=== PATIENT | female | born 1945 | race Caucasian/White ===

== ENCOUNTER → 2017-08-03 | Outpatient (CLI) | payer OTHER ==
[~2017-08-03] MED LIST: ASCO500T16 PO; ASPI-113 PO; BUSP-8 PO; CLB/200 PO; CLTP PO; ESCI1TAB10 PO; EZET10TA38 PO; HYG25 PO; LOSA1TAB PO; MECL1TAB42 PO; MULT-506 PO; OXYC-292 PO; POTA20TA16 PO
[2017-08-03 18:02] LABS: ALBUMIN 3.9 gm/dl (3.4-5.0); ALT/SGPT 32 U/L (12-78); AST/SGOT 17 U/L (15-37); BLOOD UREA NITROGEN 15 mg/dl (7-18); CALCIUM 9.3 mg/dl (8.5-10.1); CARBON DIOXIDE 31 mmol/L (21-32); GLUCOSE 140 mg/dl (70-99); SODIUM 137 mmol/L (136-145)
[2017-08-03 18:04] LABS: ALKALINE PHOSPHATASE 71 U/L (45-117); TOTAL PROTEIN 7.1 gm/dl (6.4-8.2)
== END | disposition home or self-care (01) ==
LOC: C.LABPBG 11:50
PROVIDERS: ATTEND Family Medicine
DX: E11.9 Type 2 diabetes mellitus without complications (principal); I10 Essential (primary) hypertension

== ENCOUNTER → 2017-08-04 | Outpatient (CLI) | payer OTHER ==
[~2017-08-04] MED LIST changes: +GADAVIST IV PRN
--- NOTE | 2017-08-04 11:54 | DIAGNOSTIC IMAGING REPORT ---
Brain MRI WITH AND WITHOUT CONTRAST HISTORY: Tremors. TECHNIQUE: Multiplanar multisequence MRI of the brain was performed both before and after the intravenous administration of contrast. COMPARISON STUDY: None. FINDINGS: There are no areas of restricted diffusion to suggest acute infarction. The midline structures are intact. The paranasal sinuses are clear. The mastoid air cells are clear. The ventricles and sulci are within normal limits for age. There is no mass, hematoma, midline shift. The major vascular flow-voids at the skull base are well maintained. Postcontrast sequences show no areas of abnormal enhancement. There is a 1 cm T1 and T2 hyperintense lesion within the calvarium posteriorly. This favors a hemangioma. There is a single punctate focus of T2 hyperintensity seen within the periventricular white matter of the left frontal lobe. This is of doubtful clinical significance and may be due to a focus of microvascular ischemic change. IMPRESSION: No acute intracranial abnormality. Electronically signed by: Aldo Neal M.D. 08/04/2017 11:53 AM Dictated Date/Time: 08/04/2017 11:47 AM
== END | disposition home or self-care (01) ==
LOC: C.MRI 10:53
PROVIDERS: ATTEND Family Medicine
DX: R25.1 Tremor, unspecified (principal)

== ENCOUNTER 2018-12-23 05:01 | Inpatient (IN) ==
--- NOTE | 2018-12-02 15:52 | PAT Medication Instructions ---
Medication Instructions Date of Service December 02, 2018 Home Medications atorvastatin 40 mg PO HS buspirone 15 mg PO BID calcium carbonate-vitamin D3 [Calcium 600 + D(3)] 2 cap PO QAM escitalopram oxalate 20 mg PO QAM fenofibrate micronized 134 mg PO QAM glipizide 2.5 mg PO QPM losartan 25 mg PO QAM metformin 500 mg PO QPM naproxen sodium [Aleve] 440 mg PO Q8H PRN ASK your surgeon for instructions naproxen sodium [Aleve] 440 mg PO Q8H PRN STOP taking 24 hours before surgery fenofibrate micronized 134 mg PO QAM DO NOT take the morning of surgery calcium carbonate-vitamin D3 [Calcium 600 + D(3)] 2 cap PO QAM losartan 25 mg PO QAM Take morning of surgery With a small sip of water, OTHERWISE NOTHING TO EAT OR DRINK AFTER MIDNIGHT: buspirone 15 mg PO BID escitalopram oxalate 20 mg PO QAM Take evening before surgery atorvastatin 40 mg PO HS buspirone 15 mg PO BID glipizide 2.5 mg PO QPM metformin 500 mg PO QPM Other Notes If you have any questions please call us at [phone] or [phone] or [phone] or [phone]
--- NOTE | 2018-12-07 08:50 | History & Physical Report ---
Date of Service December 07, 2018 Date of Surgery: 12-23-18 Assessment & Plan (1) Painful total knee replacement, left: Risks and benefits of procedure discussed in detail today, patient would like to proceed with a left total knee revision at [facility] as scheduled. will obtain medical clearance prior to surgery as well as obtain PATs at [facility]. Will place on ASA 81mg po bid x 1 month post op, f/u 2 weeks post op for routine post-operative care and x-ray, sooner if having any problems. will make arrangements for OPPT at the time of discharge. At this point in time, has failed conservative measures and would like to proceed with surgical intervention. is scheduled for stress test December 16. History of Present Illness Chief Complaint: painful left total knee replacement Primary Care Provider: Liss Garrison DO Ms Rand is a 73 year old female who complains of left knee pain, presents for pre-op evaluation prior to a left total knee revision by Dr Bryant at [facility]. She complains of pain and instability on the left side. she had previously underwent left medial compartment and patellofemoral arthroplasty with ORIF tibial plateau by Dr Nichols 08/23/10. She states that the symptoms have been chronic non- traumatic and are intermittent. currently the patient states that the symptoms are moderate-severe and describes her pain as throbbing. she rates her current pain as 5/10. The symptoms are aggravated by daily activities and first steps while awake. Princess states that the symptoms are relieved by no specific activity . In addition to left knee pain the patient is also experiencing decreased mobility, difficulty bending, limping, instability, joint pain, loss of motion and weakness. She has had PT and sometimes uses a cane and walker. 08-23-10 Dr. Nichols performed Left knee medial compartment arthroplasty, Patellofemoral arthroplasty with ORIF tibial plateau. after discussing futher care, patient will undergo revision left TKA. xrays reviewed with dr bryant, showing a subsided tibial component. Allergies Allergy/AdvReac Type Severity Reaction Status Date / Time clonazepam AdvReac Unknown severe Verified 12/01/18 12:09 dizziness;severe ringing in ears Home Medications Home Medications Medication Instructions Recorded Confirmed Type atorvastatin 40 mg PO HS 12/01/18 12/01/18 History buspirone 15 mg PO BID 12/01/18 12/01/18 History calcium carbonate-vitamin D3 2 cap PO QAM 12/01/18 12/01/18 History [Calcium 600 + D(3)] escitalopram oxalate 20 mg PO QAM 12/01/18 12/01/18 History fenofibrate micronized 134 mg PO QAM 12/01/18 12/01/18 History glipizide 2.5 mg PO QPM 12/01/18 12/01/18 History losartan 25 mg PO QAM 12/01/18 12/01/18 History metformin 500 mg PO QPM 12/01/18 12/01/18 History naproxen sodium [Aleve] 440 mg PO Q8H PRN 12/01/18 12/01/18 History Past Med/Surg History Medical History Anxiety Depression Diabetes mellitus, type 2 Hyperlipidemia Hypertension Surgical History History of appendectomy History of bilateral tubal ligation History of cholecystectomy History of colonoscopy History of total knee replacement LEFT/RIGHT Nausea and vomiting after administration of anesthetic agent Family History Mother Family history of diabetes mellitus Social History Preferred Language: Chinese Communication Ability: Effective Vp Digital Marketing Social Media And Crm Required: No Beliefs That Will Affect Care: None Current Living Situation: Spouse and Family Other Information That Helps Us Care for You: No Feels Safe at Home: Yes Safety Concerns: Feels Safe At This Time Smoking Status: Never smoker Do You Dip or Chew Tobacco: No Second Hand Exposure: Yes (SPOUSE SMOKES) Hx Alcohol Use: No Hx Substance Use: No Review of Systems Review of Systems: All systems reviewed & are unremarkable except as noted in HPI & below Constitutional: no fever, no chills and no sweats Respiratory: no cough and no dyspnea Cardiovascular: no chest pain, no dyspnea and no orthopnea Gastrointestinal: no abdominal pain, no nausea and no vomiting Musculoskeletal: as per Subjective / HPI Physical Exam Physical Exam: Ht: 4ft 11in Wt: 68.5kg BP: 132/82 Pulse: 62 Constitutional: WD/WN, vitals as above no acute distress Respiratory: normal respiratory effort, lungs clear to auscultation no respiratory distress, no labored breathing and does not use accessory muscles Cardiovascular: RRR, no murmur, no edema Gastrointestinal (Abdomen): normal bowel sounds, soft, nontender, no hepatosplenomegaly Musculoskeletal: Left Knee Exam- she ambulates with a limp, overall neutral alignment, there is no skin atrophy warmth or ecchymosis noted, well healed s urgical incision. mild effusion, maximum tenderness medial tibial plateau. negative patellar apprehension , no crepitation with motion, valgus stress Negative, Varus stress Negative, no extensor lag, pain with active range of motion, also passive painful ROM, Range of motion 0/3/115. No pain with active/passive ROM of ankle. Lower Extremity Strength normal. Lower Extremity Neuro-vascular is normal Results & Data Diagnostic Findings left knee x-ray showing s/p medial compartment and patellofemoral joint replacement, with screw in place medial tibial plateau. medial component has subsided, mild varus alignment. no acute bony pathology, no loose bodies.
--- NOTE | 2018-12-07 12:34 | Anesthesiology Consultation ---
Date of Service 12/07/18 Assessment & Plan (1) Encounter for pre-operative examination: - PCP: 12/03/18: stress test ordered for evaluation of EKG (per PCP note, EKG noted moderate T-wave abnormality with consideration of anterior ischemia). "At this time, patient will be cleared preoperatively pending stress echo." Exercise stress ECHO done - negative for ischemia at 88% MPHR. - Check BSG AM DOS Chart Review Chart Review: Acceptable Risk for Surgery and Patient seen in Pre Admission Test ing Teaching & Discussion Pre-Anesthesia Teaching/Discussion Notes: Instructed NPO after midnight before surgery,except medications with 15 cc of water. Medication instructions provided according to the PAT guidelines. History Surgery Operation Date: 12/23/18 07:00 Proposed Procedures p Left Total Knee Revision Arthroplasty Deuce to Sheba Ac, Height/Weight Height: 4 ft 11.5 in Weight: 68.5 kg Allergies Allergy/AdvReac Type Severity Reaction Status Date / Time clonazepam AdvReac Unknown severe Verified 12/01/18 12:09 dizziness;severe ringing in ears Medications Home Medications Medication Instructions Recorded Confirmed Last Taken atorvastatin 40 mg PO HS 12/01/18 12/01/18 Unknown buspirone 15 mg PO BID 12/01/18 12/01/18 Unknown calcium carbonate-vitamin D3 2 cap PO QAM 12/01/18 12/01/18 Unknown [Calcium 600 + D(3)] escitalopram oxalate 20 mg PO QAM 12/01/18 12/01/18 Unknown fenofibrate micronized 134 mg PO QAM 12/01/18 12/01/18 Unknown glipizide 2.5 mg PO QPM 12/01/18 12/01/18 Unknown losartan 25 mg PO QAM 12/01/18 12/01/18 Unknown metformin 500 mg PO QPM 12/01/18 12/01/18 Unknown naproxen sodium [Aleve] 440 mg PO Q8H PRN 12/01/18 12/01/18 Unknown Past Medical History Medical History Anxiety Depression Diabetes mellitus, type 2 NIDDM Hyperlipidemia Hypertension Exercise / Class Metabolic Activity II 4-5 Yardwork/Stairs/Walk up hill Past Family History Family History Mother Family history of diabetes mellitus Past Surgical History Surgical History History of appendectomy History of bilateral tubal ligation History of cholecystectomy History of colonoscopy History of total knee replacement LEFT/RIGHT Status post trigger finger release B/L Past Anesthesia History No Hx of Anesthesia Complications (EXCEPT PONV) and No Family Hx of Anesthesia Complications History of PONV No Hx of Motion Sickness and History of PONV Social History Smoking Status: Never smoker Do You Dip or Chew Tobacco: No Hx Alcohol Use: No Hx Substance Use: No substance use type: does not use Review of Systems Patient denies chest pain, shortness of breath, cough, wheezing, palpitations. Physical Exam Vital Signs VITALS BP 144/77 P 71 TEMP 98.6 SP02 96%RA RESP 18 PHYSICAL Full neck and c-spine range of motion. Full TMJ range of motion. TMD 3 finger breaths Mallampati Score 2 Dentition: full upper dentures Lungs: clear throughout to auscultation Cardiac: regular rate and rhythm, I-II/ systolic murmur (LUSB>RUSB) Spine: normal Carotid arteries: negative bruit Extremities: no edema Testing Laboratory Results 12/07/18 13:10 12/07/18 13:10 12/07/18 12/07/18 12/07/18 13:10 13:10 Unknown PT 10.9 INR 1.1 APTT 25.6 Hemoglobin A1c 6.0 H Urine Color Yellow Urine Appearance Clear Urine pH 6.0 Ur Specific [place] 1.021 Urine Protein Negative Urine Glucose (UA) 3+ H Urine Ketones Negative Urine Nitrite Negative Ur Leukocyte Esterase Negative Glucose 228, hgba1c 6.0% (surgeon aware) 12/07/18 HGBA1C A-Ab- Electrocardiogram Date: 12/07/18 NSR at 72bpm. NS STA. Chest X-Ray Date: 12/07/18 Findings: + NAD Stress Test Date: 12/16/18 Type: exercise Negative exercise stress ECHO for ischemia at 88% MPHR. No chest pain. 88% MPHR. 7 METS. No RWMA. No significant valvular disease.
--- NOTE | 2018-12-07 13:34 | XRay Report ---
XR chest Pre-admission PA/Lat CLINICAL HISTORY: Preoperative chest COMPARISON STUDY: 02/04/2013 FINDINGS: The cardiac and mediastinal contours are normal. There is no evidence of focal pulmonary co nsolidation. There is no evidence of failure. No pleural effusions are visualized.[ IMPRESSION: No active disease in the chest. Electronically signed by: Boris Aguirre M.D. 12/07/2018 1:32 PM
[2018-12-07 14:08] LABS: Eosinophils # (auto) 0.01 K/uL (0-0.5); Eosinophils % (auto) 0.2 %; Hematocrit (blood only) 35.7 % (37-47); Hemoglobin 12.3 g/dL (12.0-16.0); Immature Granulocytes # (auto) 0.02 K/uL (0.00-0.02); Immature Granulocytes % (auto) 0.3 %; Lymphocytes # (auto) 1.36 K/uL (1.2-3.4); Lymphocytes % (auto) 21.2 %; Mean Corpuscular Hgb Conc 34.5 g/dL (32-36); Mean Corpuscular Volume 84.6 fL (80-100); Mean Platelet Volume 10.7 fL (7.4-10.4); Monocytes # (auto) 0.36 K/uL (0.11-0.59); Monocytes % (auto) 5.6 %; Neutrophils # (auto) 4.68 K/uL (1.4-6.5); Neutrophils % (auto) 72.7 %; Platelet Count 224 K/uL (130-400); RDW Coefficient of Variation 12.9 % (11.5-14.5); RDW Standard Deviation 39.5 fL (36.4-46.3); Red Blood Count 4.22 M/uL (4.2-5.4); White Blood Count 6.43 K/uL (4.8-10.8)
[2018-12-07 14:15] LABS: Estimated Average Glucose 126 mg/dl; INR 1.1 (0.9-1.1); Partial Thromboplastin Ratio 0.9; Partial Thromboplastin Time 25.6 Seconds (21.0-31.0); Prothrombin Time 10.9 Seconds (9.0-12.0)
[2018-12-07 14:20] LABS: Appearance Urine Clear (Clear); Bilirubin Urine Negative (Negative); Blood Urine Negative (Negative); Color Urine Yellow; Glucose Urine UA 3+ (Negative); Ketones Urine Negative (Negative); Leukocyte Esterase Urine Negative (Negative); Nitrite Urine Negative (Negative); Protein Urine Negative (Negative); Specific Gravity Urine 1.021 (1.000-1.030); Urobilinogen Urine Negative (Negative)
[2018-12-07 14:33] LABS: BUN Creatinine Ratio 13.4 (10-20); Creatinine Clr Calc Pharmacy 41.5 ml/min; Est GFR (African American) 61.2; Est GFR (Non-African American) 52.8; Potassium 3.7 mmol/L (3.5-5.1)
[2018-12-23] MEDS ORDERED: CeleBREX 200 MG CAP PO SCH (06:00)
[2018-12-23] MEDS ORDERED: LR 500ML BOLUS, THEN 15ML/HR IV SCH (06:00)
[2018-12-23] MEDS ORDERED: GABAPENTIN 300 MG PO SCH (06:00)
[2018-12-23] MEDS ORDERED: fentaNYL citrate 100 MCG/2 ML VIAL ONE ×2 (06:00→08:57)
[2018-12-23] MEDS ORDERED: METOCLOPRAMIDE HCL 10 MG TABLET PO SCH (06:00)
[2018-12-23] MEDS ORDERED: PROPOFOL IV EMULSION 10 MG/ML 20 ML VIAL IV ONE (06:00)
[2018-12-23] MEDS ORDERED: CEFAZOLIN 1000MG 1,000 MG/7.5 ML SYR IV SCH (06:00)
[2018-12-23] MEDS ORDERED: FAMOTIDINE 20 MG TAB PO SCH (06:00)
[2018-12-23] MEDS ORDERED: LIDOCAINE HCL 2% 2 ML VIAL/AMP(20MG/ML) INFIL ONE (06:00)
[2018-12-23] MEDS ORDERED: ACETAMINOPHEN 500 MG TAB PO SCH (06:00)
[2018-12-23] MEDS ORDERED: ROPIVACAINE 0.5% HCL/PF 150 MG, BUPIVACAINE 0.5% MPF 30 ML, EPINEPHrine 30MG/30ML (OR U... INFIL SCH (06:00)
[2018-12-23] MEDS ORDERED: MIDAZOLAM HCL 1 MG/ML 2ML VIAL ONE (06:01)
[2018-12-23] MEDS ORDERED: BUPIVACAINE 0.5 % 5 MG/1 ML PF 10ML VIAL ONE (06:07)
[2018-12-23] MEDS ORDERED: ROPIVACAINE 0.5% 5 MG/ML 30 ML VIAL ONE (06:08)
[2018-12-23] MEDS ORDERED: ORTHO JOINT ANESTHETIC ONE (06:34)
[2018-12-23] MEDS ORDERED: BACITRACIN INJ 50,000 UNIT VIAL ONE ×2 (06:34→06:35)
[2018-12-23] MEDS ORDERED: ATROPINE SULFATE 0.1 MG/ML 10ML SYR IV PRN (06:55)
[2018-12-23] MEDS ORDERED: KETOROLAC 30 MG/ML VIAL IV PRN (06:55)
[2018-12-23] MEDS ORDERED: ePHEDrine sulfate 50 MG/ML AMP IV PRN (06:55)
[2018-12-23] MEDS ORDERED: PHENYLEPHRINE 100MCG/ML 5ML SYR IV PRN (06:55)
[2018-12-23] MEDS ORDERED: HYDROmorphone INJ 1 MG/ML SYRINGE IV PRN (06:55)
[2018-12-23] MEDS ORDERED: ONDANSETRON INJ 2 MG/ML 2 ML VIAL IV PRN ×2 (06:55→13:07)
[2018-12-23] MEDS ORDERED: TRANEXAMIC ACID 1,000 MG in 0.9 % SODIUM CHLORIDE 100 ML IV SCH (07:00)
--- NOTE | 2018-12-23 07:29 | History & Physical Bridge Note ---
Date of Service December 23, 2018 History & Physical Bridge Note I have examined the patient, reviewed the History & Physical and in the interval since the performance of the History & Physical I have noted the following changes of clinical significance: no changes noted
[2018-12-23] MEDS ORDERED: ONDANSETRON INJ 2 MG/ML 2 ML VIAL ONE (08:15)
[2018-12-23] MEDS ORDERED: ROCURONIUM BROMIDE 10 MG/ML 5 ML VIAL ONE (08:15)
[2018-12-23] MEDS ORDERED: ePHEDrine sulfate 50 MG/ML SYR ONE (08:28)
[2018-12-23] MEDS ORDERED: HYDROmorphone INJ 2 MG/ML SYR/VIAL ONE (09:23)
[2018-12-23] MEDS ORDERED: GLYCOPYRROLATE 0.2 MG/ML VIAL ONE (09:38)
[2018-12-23] MEDS ORDERED: NEOSTIGMINE METHYLSULFATE 5 MG/5 ML SYR ONE (09:38)
--- NOTE | 2018-12-23 11:04 | Operative Report ---
Post Operative Report Pre & Post Diagnosis Operation Date: 12/23/18 07:00 Pre-Op Diagnosis: LEFT KNEE OSTEOARTHRITIS Post-Op Diagnosis: LEFT KNEE OSTEOARTHRITIS Procedure Operation Date: 12/23/18 07:00 Actual Procedures p Left Total Knee Revision Arthroplasty Deuce to Sheba(Left) utilizing legion revision total knee arthroplasty femur size 3 stem size 16 stem length 22 mm o ffset set at 3:00 with 5 mm medial and posterior just distal augments tibia size to 15 mm stem by 13 mm canal with a 160 length with a stem cell offset of 6 set at 8:00 and a 5 mm medial augment- Zeke Ac DO Surgeon DO Walter Leonard DO Photogrammetric Surveyor Edward HOLT Estimated Blood Loss 50 Findings Consistent with Post-Op Diagnosis Patient presents after having previously undergone a Deuce bicompartmental knee arthroplasty which is a loosening subsidence failed patient presents for a left removal deuce with revision to total knee arthroplasty patient has had a pre- operative work-up sed rate C-reactive protein within normal limits no effusion no evidence of any infectious signs were noted intraoperatively no synovitis loosening of the tibial component was noted with subsidence Specimens Bone and cartilage explant of Deuce Drains Medium bore Hemovac Anesthesia Type General Regional Complications none Disposition Accompanied Patient To Recovery: No Disposition: Recovery Room Indications Patient presents with a painful hemiarthroplasty knee replacement which is loosened aseptically and subsided for revision to total knee arthroplasty Description of Procedure After proper prepping draping the left lower extremity incision made in the anterior aspect of the knee in the region of the previous incision the incision was subsequently the medial parapatellar incision was subsequently expanded the patella was subluxed lateralward the distal femoral and proximal tibial implants were evaluated at the distal femoral limb implant was removed utilizing oscillating saw a series of orders chisels of the proximal tibia implant was loose was removed via a hemostat the wound was evaluated at medial lateral retinacular releases were performed the scar from medial lateral gutters was excised possible tibia having been exposed intramedullary reaming successively up to a size 13 was performed which gave excellent fill this with the proximal tibial osteotomy cut was made in the region of the previous medial implant there was bone loss and way 5 mm augment was necessary the proximal tibia was was cut with a 5 mm medial augment block in place medical hemostasis obtained to maintain distance of the distal femur was evaluated there was bone loss involving the anterior tibia from the previous implant and subsequently stemmed implant was necessary subsequently the femur was reamed to a size 16 to accommodate a size 3 femur by 1 x 16 stem of the implant with a 2 mm offset set at 3:00 with distal augments of 5 mm posterior augment on the medial side of 5 no lateral elements were necessary the rotation of the implant was checked and was adjusted as necessary to obtain proper orientation socially trial components having been placed insert which was a constrained 15 mm insert gave excellent stability in both flexion extension mid flexion there is a small piece of bone that was incorporated into the medial collateral ligament attachment which was left as it is so as not to detach the medial collateral ligament the bone fragment was measured approximately 10 mm x 5 mm was left as is the wound was then once again thoroughly irrigated the implants were constructed at the back table and were rechecked socially the components were cemented on the tibial side the femoral side patellar tracking was noted to be excellent the trial was used while the bone glue was hardened after hardening of the bone cement the intraoperative change of the polyethylene to the final polyethylene 15 constrained poly-was performed stability was checked in flexion mid flexion extension was noted to be excellent wound was once again irrigated with copious muscle sterile saline solution intraoperative joint injection was placed the wound was then subsequently irrigated with Betadine solution the medial retinaculum was closed over a medium bore Hemovac the subcu was closed with 2-0 Vicryl #0 Vicryl and the skin was closed with skin clips sterile compressive dressing was placed patient was taken to the recovery room in stable condition please note the PHOEBE Benoit was a co-surgeon Edward HOLT was necessary for prepping draping retraction wound closure of the wound was necessary for the case I attest to the content of the Intraoperative Record and any orders documented therein. Any exceptions are noted below.
--- NOTE | 2018-12-23 12:15 | XRay Report ---
LEFT KNEE 2 VIEWS History: Left total knee arthroplasty. Degenerative arthritis. Postop. FINDINGS: The patient is status post a long stemmed left total knee arthroplasty. The hardware is int act. No fracture or dislocation. Skin sharon and surgical drains are in place. IMPRESSION: Long stemmed left total knee arthroplasty. No evidence for hardware complication. Electronically signed by: Aldo Neal M.D. 12/23/2018 12:14 PM
--- NOTE | 2018-12-23 12:20 | Anesthesiology Progress Note ---
Date of Service December 23, 2018 Anesthesia Post Procedure Vital Signs Vital Signs: Temp Pulse Resp BP Pulse Ox 12/23/18 12:10 88 15 131/70 97 12/23/18 12:00 90 20 136/67 93 12/23/18 11:50 86 20 118/66 97 12/23/18 11:43 37.1 C 84 19 123/62 97 Transfer of Care Handoff Completed per policy Notes Mental Status: alert / awake / arousable Patient Amnestic to Procedure: Yes Nausea / Vomiting: adequately controlled Pain: adequately controlled Airway Patency, RR, SpO2: stable & adequate BP & HR: stable & adequate Hydration State: stable & adequate Anesthetic Complications: no major complications apparent
[2018-12-23] MEDS ORDERED: HYDROmorphone INJ 0.5 MG/0.5 ML SYR IV PRN (13:07)
[2018-12-23] MEDS ORDERED: BISACODYL 10 MG SUPP PR PRN (13:07)
[2018-12-23] MEDS ORDERED: NALOXONE HCL 0.4 MG/1 ML VIAL/CARP IV PRN (13:07)
[2018-12-23] MEDS ORDERED: SODIUM CHLORIDE 0.9% 1000ML 1,000 ML IV SCH (13:07)
[2018-12-23] MEDS ORDERED: OXYCODONE HCL IR 5 MG TAB (IMMEDIATE RELEASE) PO PRN (13:07)
[2018-12-23] MEDS ORDERED: MAGNESIUM HYDROXIDE SUSP 30 ML UDC PO PRN (13:07)
[2018-12-23] MEDS ORDERED: PHARMACY GLYCEMIC MGMT CONSULT PRN (13:52)
[2018-12-23] MEDS ORDERED: CARBOHYDRATES FOR HYPOGLYCEMIA PO PRN (14:00)
[2018-12-23] MEDS ORDERED: DEXTROSE 50% 50 ML SYRINGE IV PRN (14:00)
[2018-12-23] MEDS ORDERED: GLUCAGON FOR INJ 1 MG VIAL IM PRN (14:00)
[2018-12-23] MEDS ORDERED: GLUCOSE 10 TABS/TUBE PO PRN (14:00)
[2018-12-23] MEDS ORDERED: GLUCOSE 40% GEL 15 GM TUBE PO PRN (14:00)
[2018-12-23] MEDS ORDERED: PNEUMOCOCCAL POLYSACCHARIDES 25 MCG/0.5 ML VIAL/SYR IM ONE (15:15)
[2018-12-23] MEDS ORDERED: PNEUMOCOCCAL ADMINISTRATION CHARGE ONE (15:15)
--- NOTE | 2018-12-23 15:48 | Pharmacy Report ---
Pharmacy Glycemic Short Note 2 - Date of Service December 23, 2018 - Glycemic Short BSG Results (Last 24 hours): 12/23/18 12/23/18 05:28 11:48 POC Glucose 90 102 H OUTPATIENT ANTIDIABETIC REGIMEN: * Glipizide ER 2.5mg PO qPM * Metformin 500mg PO qPM * HbA1c: 6.0% (12/07/18) ASSESSMENT: * Ms Rand is a 73yo diabetic female POD 0 s/p revision L TKA with Dr Ac this morning. * BSGs so far today have been good: 90, 102 * It does not appear that patient received any steroids in the OR, other than the dexamethasone included in the ortho joint compound. This is not expected to significantly increase hyperglycemia. * She is ordered a diabetic diet post-op. * Novolog was added for correction only, in the event that BSGs become elevated. Will plan to resume oral agents tomorrow, as long as patient is tolerating d iet. PLAN FOR INPATIENT GLYCEMIC CONTROL: * Hold outpatient oral diabetes medications * Resume glipizide and metformin tomorrow, if tolerating diet * Basal insulin * none at this time * Bolus insulin * NovoLog per scale ACHS or Q6hrs while NPO * Goal Range: Low 120 mg/dL - High 160 mg/dL * Correction Factor: 35 mg/dL/unit * Nutritional / Prandial insulin: none at this time PLAN FOR DISCHARGE: * Patient's recent A1c (6.0%) indicates excellent glycemic control as an outpatient. * Expect that patient may resume home regimen on discharge, as long as she does not report having episodes of hypoglycemia.
[2018-12-23] MEDS: CEFAZOLIN 1000MG 1,000 MG/7.5 ML SYR IV SCH (15:52)
[2018-12-23] MEDS: ACETAMINOPHEN 500 MG TAB PO SCH (15:52)
[2018-12-23] MEDS: FERROUS GLUCONATE 324 MG TAB PO SCH (18:09)
[2018-12-23] MEDS: INSULIN ASPART 100 UNITS/ML 3 ML PEN SC SCH ×2 (18:28→20:44)
[2018-12-23] MEDS: DOCUSATE SODIUM 100 MG CAP PO SCH (20:41)
[2018-12-23] MEDS: ASPIRIN 81 MG ECTAB PO SCH (20:41)
[2018-12-23] MEDS: SENNA 8.6 MG TAB PO SCH (20:41)
[2018-12-23] MEDS: ATORVASTATIN 40 MG TAB PO SCH (20:41)
[2018-12-23] MEDS: BusPIRone 15 MG TAB PO SCH (20:41)
[2018-12-24] MEDS: CEFAZOLIN 1000MG 1,000 MG/7.5 ML SYR IV SCH (00:09)
[2018-12-24] MEDS: ACETAMINOPHEN 500 MG TAB PO SCH ×3 (00:09→15:11)
[2018-12-24 06:10] LABS: Hematocrit (blood only) 29.5 % (37-47); Hemoglobin 10.1 g/dL (12.0-16.0); Mean Corpuscular Hgb Conc 34.2 g/dL (32-36); Mean Corpuscular Volume 86.5 fL (80-100); Mean Platelet Volume 9.8 fL (7.4-10.4); Platelet Count 192 K/uL (130-400); RDW Standard Deviation 41.7 fL (36.4-46.3); Red Blood Count 3.41 M/uL (4.2-5.4); White Blood Count 10.35 K/uL (4.8-10.8)
[2018-12-24 06:44] LABS: BUN Creatinine Ratio 11.8 (10-20); Calcium 8.7 mg/dl (8.5-10.1); Creatinine Clr Calc Pharmacy 37.3 ml/min; Est GFR (African American) 53.7; Est GFR (Non-African American) 46.4; Potassium 3.9 mmol/L (3.5-5.1)
--- NOTE | 2018-12-24 08:36 | Orthopedic Progress Note ---
Date of Service December 24, 2018 Assessment & Plan (1) Painful total knee replacement, left: POD 1 s/p Revision Left TKA PT/OT protocols. WBAT. DVT prophylaxis with ASA bid, SCD's,DANYELLE's Pain management with Acetaminophen,Oxycodone,Hydromorphone DC planning - pt planning for OPPT at [place] upon DC. Subjective POD 1 s/p Left Revision TKA Pt is awake,alert. No complaints. Comfortable. Pain controlled. Denies SOB,CP,LH. Denies calf tenderness. Physical Exam Physical Exam: Dressings C/D/I. Calves soft, NT. NV intact. Toes mobile. HV drainage 25ml latest shift. Results & Data Vital Signs (Past 12 Hours) Vital Signs Temp Pulse Resp BP Pulse Ox 12/24/18 07:25 70 16 127/66 96 12/24/18 03:22 37.4 C 83 16 135/72 92 12/23/18 23:26 36.7 C 75 16 125/72 92 Laboratory Results Laboratory Results WBC 10.35 K/uL (4.8-10.8) 12/24/18 05:54 RBC 3.41 M/uL (4.2-5.4) L 12/24/18 05:54 Hgb 10.1 g/dL (12.0-16.0) L 12/24/18 05:54 Hct 29.5 % (37-47) L 12/24/18 05:54 MCV 86.5 fL (80-100) 12/24/18 05:54 MCH 29.6 pg (25-34) 12/24/18 05:54 MCHC 34.2 g/dL (32-36) 12/24/18 05:54 RDW Std Deviation 41.7 fL (36.4-46.3) 12/24/18 05:54 RDW Coeff of David 13.0 % (11.5-14.5) 12/24/18 05:54 Plt Count 192 K/uL (130-400) 12/24/18 05:54 MPV 9.8 fL (7.4-10.4) 12/24/18 05:54 Immature Gran % (Auto) 0.3 % 12/07/18 13:10 Neut % (Auto) 72.7 % 12/07/18 13:10 Lymph % (Auto) 21.2 % 12/07/18 13:10 [place] % (Auto) 5.6 % 12/07/18 13:10 Eos % (Auto) 0.2 % 12/07/18 13:10 Baso % (Auto) 0.0 % 12/07/18 13:10 Immature Gran # (Auto) 0.02 K/uL (0.00-0.02) 12/07/18 13:10 Neut # (Auto) 4.68 K/uL (1.4-6.5) 12/07/18 13:10 Lymph # (Auto) 1.36 K/uL (1.2-3.4) 12/07/18 13:10 [place] # (Auto) 0.36 K/uL (0.11-0.59) 12/07/18 13:10 Eos # (Auto) 0.01 K/uL (0-0.5) 12/07/18 13:10 Baso # (Auto) 0.00 K/uL (0-0.2) 12/07/18 13:10 PT 10.9 Seconds (9.0-12.0) 12/07/18 13:10 INR 1.1 (0.9-1.1) 12/07/18 13:10 APTT 25.6 Seconds (21.0-31.0) 12/07/18 13:10 PTT Ratio 0.9 12/07/18 13:10 Sodium 141 mmol/L (136-145) 12/24/18 05:54 Potassium 3.9 mmol/L (3.5-5.1) 12/24/18 05:54 Chloride 106 mmol/L (98-107) 12/24/18 05:54 Carbon Dioxide 28 mmol/L (21-32) 12/24/18 05:54 Anion Gap 7.0 (3-11) 12/24/18 05:54 BUN 14 mg/dl (7-18) 12/24/18 05:54 Creatinine 1.18 mg/dl (0.6-1.2) 12/24/18 05:54 Est Cr Clr Drug Dosing 37.3 ml/min 12/24/18 05:54 Est GFR ( Amer) 53.7 12/24/18 05:54 Est GFR (Non-Af Amer) 46.4 12/24/18 05:54 BUN/Creatinine Ratio 11.8 (10-20) 12/24/18 05:54 Glucose 121 mg/dl (70-99) H 12/24/18 05:54 POC Glucose 127 (70-99) H 12/24/18 08:11 Estimat Average Glucose 126 mg/dl 12/07/18 13:10 Hemoglobin A1c 6.0 % (4.5-5.6) H 12/07/18 13:10 Calcium 8.7 mg/dl (8.5-10.1) 12/24/18 05:54 Albumin 4.0 gm/dl (3.4-5.0) 12/07/18 13:10 Urine Color Yellow 12/07/18 Unknown Urine Appearance Clear (Clear) 12/07/18 Unknown Urine pH 6.0 (4.5-7.5) 12/07/18 Unknown Ur Specific [place] 1.021 (1.000-1.030) 12/07/18 Unknown Urine Protein Negative (Negative) 12/07/18 Unknown Urine Glucose (UA) 3+ (Negative) H 12/07/18 Unknown Urine Ketones Negative (Negative) 12/07/18 Unknown Urine Blood Negative (Negative) 12/07/18 Unknown Urine Nitrite Negative (Negative) 12/07/18 Unknown Urine Bilirubin Negative (Negative) 12/07/18 Unknown Urine Urobilinogen Negative (Negative) 12/07/18 Unknown Ur Leukocyte Esterase Negative (Negative) 12/07/18 Unknown Blood Type A Negative 12/23/18 05:34 Antibody Screen POSITIVE A 12/23/18 05:34 Elution 12/23/18 05:34 Direct Antiglob Test Positive (Negative) A 12/23/18 05:34 RICARDO (IgG-AHG) Weak Pos (Negative) A 12/23/18 05:34 RICARDO, Polyspecific Weak Pos (Negative) A 12/23/18 05:34 RICARDO C3b, C3d 5 Min Neg (Negative) 12/23/18 05:34 Crossmatch See Detail 12/23/18 05:34
[2018-12-24] MEDS: LOSARTAN POTASSIUM 25 MG TAB PO SCH (08:48)
[2018-12-24] MEDS: ESCITALOPRAM OXALATE 20 MG TAB PO SCH (08:48)
[2018-12-24] MEDS: MULTIVITAMIN TAB PO SCH (08:48)
[2018-12-24] MEDS: CALCIUM 600MG + VIT D 400 IU TAB PO SCH (08:48)
[2018-12-24] MEDS: FERROUS GLUCONATE 324 MG TAB PO SCH ×2 (08:49→17:23)
[2018-12-24] MEDS: ASPIRIN 81 MG ECTAB PO SCH ×2 (08:49→20:20)
[2018-12-24] MEDS: BusPIRone 15 MG TAB PO SCH (08:49)
[2018-12-24] MEDS: DOCUSATE SODIUM 100 MG CAP PO SCH ×2 (08:49→20:20)
[2018-12-24] MEDS: INSULIN ASPART 100 UNITS/ML 3 ML PEN SC SCH ×4 (09:19→21:25)
--- NOTE | 2018-12-24 14:40 | Pharmacy Report ---
Pharmacy Glycemic Short Note 2 - Date of Service December 24, 2018 - Glycemic Short BSG Results (Last 24 hours): 12/23/18 12/23/18 12/24/18 17:51 20:40 05:54 Glucose 121 H POC Glucose 203 H 179 H 12/24/18 12/24/18 08:11 12:12 Glucose POC Glucose 127 H 134 H OUTPATIENT ANTIDIABETIC REGIMEN: * Glipizide ER 2.5mg PO qPM * Metformin 500mg PO qPM * HbA1c: 6.0% (12/07/18) ASSESSMENT: 12/24/18: * Patient BG ranged 90-203 past 24 hours with minimal insulin received (3 units yesterday) * She is tolerating diet per nursing report, therefore safe to resume oral outpatient medications 12/23/18: * Ms Rand is a 73yo diabetic female POD 0 s/p revision L TKA with Dr Ac this morning. * BSGs so far today have been good: 90, 102 * It does not appear that patient received any steroids in the OR, other than the dexamethasone included in the ortho joint compound. This is not expected to significantly increase hyperglycemia. * She is ordered a diabetic diet post-op. * Novolog was added for correction only, in the event that BSGs become elevated. Will plan to resume oral agents tomorrow, as long as patient is tolerating diet. PLAN FOR INPATIENT GLYCEMIC CONTROL: * Restart glipizide 2.5mg and metformin 500mg tonight with dinner * Basal insulin - not needed * Bolus insulin * NovoLog per scale ACHS or Q6hrs while NPO * Goal Range: Low 120 mg/dL - High 160 mg/dL * Correction Factor: 35 mg/dL/unit * Nutritional / Prandial insulin: none at this time -- glipizide restarted. Consider D/C Novolog and signing off glycemic consult. PLAN FOR DISCHARGE: * Patient's recent A1c (6.0%) indicates excellent glycemic control as an outpatient. * Expect that patient may resume home regimen on discharge, as long as she does not report having episodes of hypoglycemia.
[2018-12-24] MEDS ORDERED: METFORMIN HCL 500 MG TAB PO SCH (16:30)
[2018-12-24] MEDS ORDERED: glipiZIDE ER 2.5 MG TABCR PO SCH (16:30)
[2018-12-24] MEDS: TRAMADOL HCL 50 MG TABLET PO PRN (17:24)
[2018-12-24] MEDS: ATORVASTATIN 40 MG TAB PO SCH (20:20)
[2018-12-24] MEDS: SENNA 8.6 MG TAB PO SCH (20:20)
[2018-12-24] MEDS: BUSPIRONE HCL 7.5 MG TAB PO SCH (20:21)
[2018-12-25] MEDS: ACETAMINOPHEN 500 MG TAB PO SCH ×2 (00:16→07:26)
[2018-12-25] MEDS: TRAMADOL HCL 50 MG TABLET PO PRN (04:33)
[2018-12-25] MEDS: ASPIRIN 81 MG ECTAB PO SCH (07:28)
[2018-12-25] MEDS: FERROUS GLUCONATE 324 MG TAB PO SCH (07:28)
[2018-12-25] MEDS: BUSPIRONE HCL 7.5 MG TAB PO SCH (07:28)
[2018-12-25] MEDS: DOCUSATE SODIUM 100 MG CAP PO SCH (07:29)
[2018-12-25] MEDS: LOSARTAN POTASSIUM 25 MG TAB PO SCH (07:29)
[2018-12-25] MEDS: CALCIUM 600MG + VIT D 400 IU TAB PO SCH (07:29)
[2018-12-25] MEDS: MULTIVITAMIN TAB PO SCH (07:29)
[2018-12-25] MEDS: ESCITALOPRAM OXALATE 20 MG TAB PO SCH (07:29)
[2018-12-25] MEDS: INSULIN ASPART 100 UNITS/ML 3 ML PEN SC SCH (07:38)
--- NOTE | 2018-12-25 08:53 | Orthopedic Progress Note ---
Date of Service December 25, 2018 Assessment & Plan (1) Painful total knee replacement, left: POD 2 s/p Revision Left TKA PT/OT protocols. WBAT. DVT prophylaxis with ASA bid, SCD's,DANYELLE's Pain management with Acetaminophen,Oxycodone,Hydromorphone DC planning - pt planning for OPPT at [facility] today. Subjective POD 2 s/p Left Revision TKA Pt is awake,alert. No complaints. Comfortable. Pain controlled. Denies SOB,CP,LH. Denies calf tenderness. Physical Exam Physical Exam: Left knee prevena c/d/i, no drainage, no erythema. Toes and ankle mobile No calf tenderness. A&Ox3. Results & Data Vital Signs (Past 12 Hours) Vital Signs Temp Pulse Resp BP Pulse Ox 12/25/18 06:36 36.7 C 79 19 144/82 H 97 12/24/18 23:28 36.6 C 76 19 127/75 95
[2018-12-25] MEDS ORDERED: TRAMADOL HCL 50 MG TABLET PO PRN (09:02)
--- NOTE | 2019-01-03 23:14 | Discharge Summary ---
DISCHARGE DIAGNOSIS: Degenerative joint disease, left knee. SECONDARY DIAGNOSES: Anxiety, depression, diabetes mellitus type 2, hyperlipidemia, and hypertension. CONSULTS: None. COMPLICATIONS: None. PROCEDURES: Left total knee arthroplasty performed by Dr. Ac on 12/23/2018. BRIEF HISTORY: As dictated in the history and physical. HOSPITAL SUMMARY: The patient was admitted on the above-noted date and had the above-noted surgery performed, which she tolerated well. On the first postoperative day, patient was awake and alert, no complaints, comfortable. Pain was controlled. Denies shortness of breath, chest pain, or lightheadedness. Denies calf tenderness. Dressings clean, dry, and intact. Calves were soft and nontender. Neurovascularly intact. Toes were mobile. Hemovac drainage was 25 mL in the latest shift. Vital signs were stable. They were afebrile and hemoglobin was 10.1. They were started on physical therapy protocol and continued on DVT prophylaxis and pain management. Plan is for outpatient PT upon discharge. By the patient's second postoperative day, she was awake and alert without complaints, comfortable. Pain was controlled. Denied shortness of breath, chest pain, or lightheadedness. Denied calf tenderness. Left knee Prevena was clean, dry, and intact. No drainage, no erythema. Toes and ankle were mobile. No calf tenderness. Alert and oriented x3. Vital signs were stable. She was afebrile. She is to continue on her PT/OT protocols, DVT prophylaxis, and pain management. She was progressing with her physical therapy, ambulating 300 feet and was otherwise remaining stable and it was felt that she could be discharged to home with plans for outpatient PT. For further review, please see chart. LABORATORY AND X-RAY DATA: As per chart. DISCHARGE INSTRUCTIONS: The patient was discharged to home in satisfactory condition on 12/25/2018. DIET: Diabetic. ACTIVITY: Weightbearing as tolerated on the left lower extremity with walker. Follow TK instruction sheets and special care instructions as noted. Follow up with Dr. Ac in 2 weeks. The patient to call for appointment if one has not been made for you. DISCHARGE MEDICATIONS: Acetaminophen 1000 mg p.o. q. 8 hours, aspirin 81 mg p.o. b.i.d., cefadroxil 500 mg p.o. b.i.d., tramadol 50-100 mg p.o. q. 4 hours p.r.n. Resume home meds as listed and stop taking naproxen.
== END 2018-12-25 11:11 | disposition home or self-care (01) | DRG 468 ==
LOC: ASU 05:01 → 3E 11:52

== ENCOUNTER 2025-01-19 15:26 | Observation (INO) ==
--- NOTE | 2025-01-19 15:59 | Emergency Department Note ---
Impression & Plan Syncope, Acute hypokalemia, Acute dehydration ED Provider Note NAME: LORENA DALTON AGE: 79 SEX: F : 1945 ARRIVES VIA: Ambulance INFORMANT: Patient, daughters, ED PROVIDER(S): Gautam Zarate MD CHIEF COMPLAINT: Syncope MEDICAL DECISION MAKING: Patient presents due to concern for syncope x 2. IV was established and blood work was obtained. Patient was ordered IV fluids. Patient with a white count of 10.9 with a normal hemoglobin and platelet count. Kidney function with a creatinine 1.23. This is slightly off of the patient's baseline. Critical potassium of 2.5. Patient was ordered p.o. magnesium oxide as well as potassium chloride replacement. Magnesium lab was also ordered. Urinalysis does not show evidence of obvious infection. Given the patient's syncope x 2 with critical hypokalemia do the patient would benefit from admission. Patient CT head and chest x-ray are unremarkable. I did speak the on-call hospital service Erendira Perez PA-C and the patient was admitted by the medicine service by Dr. Almaraz. Discussion w/ other healthcare providers: Erendira Perez PA-C with Dr. Almaraz Prior /Outside records reviewed: None Differential diagnosis: Vasovagal event, dehydration, infection, hypoglycemia, electrolyte abnormalities, arrhythmia, pulmonary embolism, seizure among others were considered. Diagnostics, as interpreted by me: ECG: Normal sinus rhythm, rate of 89, normal intervals, normal axis no ST elevations. Cardiac monitoring: An order was placed for continuous cardiac monitoring. The monitor shows a rate of 89 with sinus rhythm. Patient was placed on pulse oximetry Medical decision rules: None Imaging studies: I informally interpreted the patient's chest x-ray does not show obvious pneumonia with formal report to follow. HPI: Patient presents due to concern for syncope. Reportedly happened x 2. Patient had reportedly gotten up from a seated position walked over bent over to plug in her phone and subsequently passed out. This lasted maybe seconds in duration. Patient believes that she struck the right side of her face. Patient does not take any blood thinners. The patient did try to sit up there after and syncopized a second time. Patient states that over the last several months the patient will occasionally lose feeling in her legs. No acute back pain. Patient states that this did occur again today during the symptoms. Patient denies any head neck chest back or abdominal pain. The patient has had poor appetite the last several days per family at the bedside. Patient denies any chest pains or shortness of breath. Patient is a diabetic but only takes Jardiance. No recent changes in her medications. With regard to this loss of sensation in her legs that happens occasionally and only lasts for seconds in duration they did talk with her primary care and reviewed the medication list but no obvious culprit per family. PAST MEDICAL HISTORY: See Below PAST SURGICAL HISTORY: See Below SOCIAL HISTORY: See Below HOME MEDICATIONS: See Below ALLERGIES: See Below VITALS: See Below PHYSICAL EXAMINATION: GENERAL: NAD, non-toxic. EYE EXAM: Normal conjunctiva. PERRL, no anisocoria and EOM's grossly intact w/o pain. OROPHARYNX: Moist mucus membranes, grossly normal dentition. NECK: Trachea midline, no stridor. LUNGS: Clear to auscultation. Normal chest wall mechanics. HEART: NSR, no MRG. ABDOMEN: Abdomen soft, non-tender, no masses, no rebound or guarding. BACK: No CVA TTP. No midline lower back pain. SKIN: No rashes and no bruising. UPPER EXTREMITIES: Upper extremities are grossly normal. LOWER EXTREMITIES: Grossly normal, no edema. NEURO EXAM: Awake and alert, follows commands, no obvious facial asymmetry, normal speech, moves all 4 extremities. No sensory deficits moves legs without issue. 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 Low serum parathyroid hormone (PTH) Lumbosacral radiculopathy Lumbar spondylosis Lumbar spinal stenosis Arthritis of carpometacarpal (CMC) joint of left thumb Anxiety and depression Dyspepsia Diabetes mellitus, type 2 NIDDM Hypertension Hyperlipidemia Anxiety related tremor Medical History Bilateral thumb pain Trigger finger, left index finger Trigger finger, right index finger Trigger finger, right middle finger Mild cognitive impairment Hypercalcemia Surgical History S/P hardware removal (05/2011) L knee w/ debridement S/P dilatation and curettage (2008) Status post hysteroscopic polypectomy (2008) Status post right knee replacement (2012) Status post left partial knee replacement (08/23/10) History of total left knee replacement (12/23/18) Status post trigger finger release B/L History of cholecystectomy History of bilateral tubal ligation History of appendectomy Family History Mother Family history of diabetes mellitus Brother Cardiac disorder Myocardial infarction Grandfather (Paternal) Breast cancer Father Myocardial infarction Seizures Uncle Myocardial infarction Sister Type 2 diabetes mellitus Denies family history of Ovarian cancer Prostate cancer Colorectal cancer Social History Smoking Status: Never smoker Second Hand Exposure: Yes (SPOUSE SMOKES); Do You Dip or Chew Tobacco: No; Hx Alcohol Use: No Hx Substance Use: No Preferred Language: Lithuanian Communication Ability: Effective Visual Impairment: No Limitations Hearing Ability: Normal [place] Operator Required: No Beliefs That Will Affect Care: None marital status: Current Living Situation: Spouse and Family Current Living Situation Comment: spouse and daughter current occupational status: retired Feels Safe at Home: Yes Diet: regular Diet Comment: regular caffeine: Yes during the past year weight has: decreased > 10 lbs Physical Activity Frequency: Daily Physical Activity Frequency Comment: housework Seatbelt Use: always Sunscreen Use: No Assistive Devices: Denture - Upper, Glasses and Walker Allergies Allergies Allergy/AdvReac Type Severity Reaction Status Date / Time clonazepam AdvReac Unknown severe Verified 01/19/25 17:14 dizziness;severe ringing in ears donepezil AdvReac Dizziness Verified 01/19/25 17:14 Home Meds Home Medications Medication Instructions Recorded Confirmed cholecalciferol (vitamin D3) 25 25 mcg PO QAM 07/01/22 01/19/25 mcg (1,000 unit) capsule cyanocobalamin (vitamin B-12) 1,000 mcg PO QAM 07/01/22 01/19/25 1,000 mcg tablet (Vitamin B-12) memantine 10 mg tablet 10 mg PO BID 07/04/24 01/19/25 empagliflozin 10 mg tablet 10 mg PO QAM 01/19/25 01/19/25 (Jardiance) rosuvastatin 10 mg tablet 10 mg PO QAM 01/19/25 01/19/25 venlafaxine 37.5 mg 37.5 mg PO QAM 01/19/25 01/19/25 capsule,extended release 24 hr Previous Rx's Medication Instructions Recorded blood sugar diagnostic #100 ea 05/04/23 buspirone 15 mg tablet 15 mg PO BID #180 tabs 01/11/24 losartan 100 1 tab PO QAM #90 tabs 03/24/24 mg-hydrochlorothiazide 25 mg tablet venlafaxine 150 mg 150 mg PO QAM #90 caps 05/17/24 capsule,extended release 24 hr Results & Data (ED) Vital Signs Vital Signs - 24 hr 01/19/25 15:32 01/19/25 15:32 01/19/25 15:32 Temperature 37.1 C Temperature Source Oral Pulse Rate - Lying Pulse Rate - Sitting Pulse Rate - Standing Pulse Rate 89 Pulse Rate [Apical] 89 Respiratory Rate 19 19 Respiratory Effort / Characteristics Non-Labored Spontaneous Non-Labored Spontaneous Respiratory Depth Normal Normal Respiratory Pattern Regular Blood Pressure - Lying Blood Pressure - Sitting Blood Pressure- Standing Blood Pressure 124/79 Blood Pressure [Right Arm] 124/79 Blood Pressure Mean 94 Blood Pressure Mean [Right Arm] 94 Pulse Oximetry 96 96 96 Oxygen Delivery Method Room Air Room Air Room Air Sepsis Recent Fever Within 48 Hours No Sepsis New/Unexplained Change in Mental Status No Sepsis Action Taken by Nursing No Action Required 01/19/25 15:42 01/19/25 15:53 01/19/25 17:11 Temperature Temperature Source Pulse Rate - Lying Pulse Rate - Sitting Pulse Rate - Standing Pulse Rate 82 Pulse Rate [Apical] 85 Respiratory Rate 20 Respiratory Effort / Characteristics Non-Labored Spontaneous Respiratory Depth Normal Respiratory Pattern Regular Blood Pressure - Lying Blood Pressure - Sitting Blood Pressure- Standing Blood Pressure Blood Pressure [Right Arm] 134/100 Blood Pressure Mean Blood Pressure Mean [Right Arm] 111 Pulse Oximetry 96 99 Oxygen Delivery Method Room Air Room Air Sepsis Recent Fever Within 48 Hours Sepsis New/Unexplained Change in Mental Status Sepsis Action Taken by Nursing 01/19/25 18:04 01/19/25 19:00 01/19/25 19:43 Temperature Temperature Source Pulse Rate - Lying 78 Pulse Rate - Sitting 80 Pulse Rate - Standing 84 Pulse Rate 77 Pulse Rate [Apical] 80 Respiratory Rate 18 18 Respiratory Effort / Characteristics Non-Labored Spontaneous Respiratory Depth Normal Respiratory Pattern Blood Pressure - Lying 147/76 H Blood Pressure - Sitting 129/75 Blood Pressure- Standing 111/63 Blood Pressure 132/69 Blood Pressure [Right Arm] 145/85 H Blood Pressure Mean Blood Pressure Mean [Right Arm] 105 Pulse Oximetry 98 96 Oxygen Delivery Method Room Air Room Air Sepsis Recent Fever Within 48 Hours Sepsis New/Unexplained Change in Mental Status Sepsis Action Taken by [facility] Medications Current Medication List: was personally reviewed by me Laboratory Data Attestation: I reviewed the patient's lab results. 01/19/25 15:40 01/19/25 15:40 Lab Results 01/19/25 01/19/25 Range/Units 15:40 17:43 WBC 10.90 H (4.8-10.8) K/ul RBC 4.81 (4.20-5.40) M/uL Hgb 13.6 (12.0-16.0) g/dl Hct 38.3 (37.0-47.0) % MCV 79.6 L (80.0-100.0) fL MCH 28.3 (25.0-34.0) pg MCHC 35.5 (32.0-36.0) g/dL RDW Std Deviation 35.7 L (36.4-46.3) fL RDW Coeff of David 12.6 (11.5-14.5) % Plt Count 293 (130-400) K/uL MPV 10.1 (9.4-12.4) fL Immature Gran % (Auto) 0.4 % Neut % (Auto) 59.6 % Lymph % (Auto) 30.5 % [place] % (Auto) 9.1 % Eos % (Auto) 0.0 % Baso % (Auto) 0.4 % Neut # (Auto) 6.51 H (1.40-6.50) K/uL Lymph # (Auto) 3.32 (1.20-3.40) K/uL [place] # (Auto) 0.99 H (0.11-0.59) K/uL Eos # (Auto) 0.00 (0.00-0.50) K/uL Baso # (Auto) 0.04 (0.00-0.20) K/uL Immature Gran # (Auto) 0.04 (0.01-0.20) K/uL PT 10.8 (9.0-12.0) Seconds INR 1.0 (0.9-1.1) APTT 26 (21-31) Seconds PTT Ratio 1.0 Sodium 135 L (136-145) mmol/L Potassium 2.5 L* (3.5-5.1) mmol/L Chloride 94 L (98-107) mmol/L Carbon Dioxide 30 (21-32) mmol/L Anion Gap 11 (3-11) BUN 17 (6-23) mg/dl Creatinine 1.23 H (0.6-1.2) mg/dl Est Cr Clr Drug Dosing 30.8 ml/min eGFR 45.26 BUN/Creatinine Ratio 13.8 (10-20) Glucose 170 H (70-99(Fasting)) mg/dl Calcium 9.9 (8.6-10.3) mg/dl Magnesium 2.3 (1.7-2.4) mg/dl Total Bilirubin 0.5 (0.2-1.0) mg/dl AST 14 (13-39) U/L ALT 14 (7-52) U/L Alkaline Phosphatase 66 (34-104) U/L Troponin I High Sens 6.4 (0-14) pg/ml Total Protein 7.1 (6.0-8.3) gm/dl Albumin 4.7 (3.4-5.0) gm/dl Globulin 2.4 L (2.5-4.0) gm/dl Albumin/Globulin Ratio 2.0 (0.9-2) Urine Color Yellow Urine Appearance Clear (Clear) Urine pH 6.5 (4.5-7.5) Ur Specific [place] 1.007 (1.000-1.030) Urine Protein Negative (Negative) Urine Glucose (UA) 3+ H (Negative) Urine Ketones Negative (Negative) Urine Blood Negative (Negative) Urine Nitrite Negative (Negative) Urine Bilirubin Negative (Negative) Urine Urobilinogen Negative (Negative) Ur Leukocyte Esterase 1+ H (Negative) Urine WBC (Auto) 0-5 (0-5) /hpf Urine RBC (Auto) 0-2 (0-2) /hpf U Hyaline Cast (Auto) 0-2 (0-2) /lpf U Epithel Cells (Auto) 0-2 (0-2) /hpf Urine Bacteria (Auto) None Seen (None Seen) Urine Comment Administered Medications Discontinued Medications Sodium Chloride (Nss) 500 mls @ 999 mls/hr IV .Q31M ONE Stop: 01/19/25 16:51 Last Infusion: 01/19/25 17:03 Dose: Infused Documented By: Admin: 01/19/25 16:29 Dose: 999 mls/hr Documented By: CTK Magnesium Oxide (Magnesium Oxide 400 Mg Tab) 800 mg PO NOW STA Stop: 01/19/25 16:53 Last Admin: 01/19/25 17:07 Dose: 800 mg Documented By: AMADO Potassium Chloride (Potassium Chloride Crtab 20 Meq Tabcr) 40 meq PO NOW STA Stop: 01/19/25 16:53 Last Admin: 01/19/25 17:07 Dose: 40 meq Documented By: AMADO Potassium Chloride (Potassium Chloride Crtab 20 Meq Tabcr) 20 meq PO NOW STA Stop: 01/19/25 17:12 Last Admin: 01/19/25 17:47 Dose: 20 meq Documented By: AMADO Imaging Data Radiologist's Impression: Chest X-Ray 01/19/25 15:42 XR chest 1V portable HISTORY: 79 years-old Female Chest pain, nonspecific COMPARISON: 04/01/2023 TECHNIQUE: AP view of the chest FINDINGS: Cholecystectomy. Cardiomediastinal and hilar silhouettes are within normal limits. No pneumothorax, pleural effusion or airspace consolidation. Left breast biopsy clip. Bones appear grossly intact. IMPRESSION: No acute process. ACT 112: Negative or not required by law. The above report was generated using voice recognition software. It may contain grammatical, syntax or spelling errors. Electronically signed by: Da Kearns M.D. 01/19/2025 3:[address] 01/19/25 15:59 CT head without contrast History: Trauma Comparison: 04/01/2023 Technique: Using multidetector thin collimation helical acquisition technique, axial, coronal and sagittal CT images from the skull base to the vertex were obtained without intravenous contrast. Dose reduction techniques were achieved by using automatic exposure control and/or adjustment of mA and/or kV according to patient size and/or use of iterative reconstruction technique. Findings: No intracranial hemorrhage, mass-effect, or midline shift. The ventricles are proportionate to the cerebral sulci. The mead to white matter differentiation of the cerebral hemispheres is preserved. The basal cisterns are patent. The visualized paranasal sinuses are clear. Mastoid air cells are clear. Impression: No acute intracranial pathology. Electronically signed by Jason Walker 01-19-2025 4:48 PM Discharge Plan Visit Data Chief Complaint: Fall Stated Complaint: FALL ED Provider: Gautam Zarate Discharge Problem: Syncope, Acute hypokalemia, Acute dehydration Patient Disposition: Admitted As Inpatient Condition: Good Discharge Instructions Interventions: ED Discharge Assessment Last Done: 01/19/25 19:43 Forms Stand Alone Forms: [facility] [employer] Prescriptions Prescriptions: No Action (DME) blood sugar diagnostic Strip See Dose Instructions .ROUTE .MEDSUPPLY Qty: 100 6RF Dose Instruction: As directed Rx Instructions: one touch [place] test strips. Testiing daily buspirone 15 mg tablet 15 mg PO BID Qty: 180 1RF losartan-hydrochlorothiazide 100-25 mg tablet 1 tab PO QAM Qty: 90 3RF venlafaxine 150 mg capsule,extended release 24hr 150 mg PO QAM Qty: 90 1RF cyanocobalamin (vitamin B-12) [Vitamin B-12] 1,000 mcg tablet 1,000 mcg PO QAM cholecalciferol (vitamin D3) 25 mcg (1,000 unit) capsule 25 mcg PO QAM memantine 10 mg tablet 10 mg PO BID venlafaxine 37.5 mg capsule,extended release 24hr 37.5 mg PO QAM Rx Instructions: Take with 150mg capsule daily Jardiance 10 mg tablet 10 mg PO QAM rosuvastatin 10 mg tablet 10 mg PO QAM Referrals Referrals: Liss Garrison DO [Primary Care Provider] - Discharge Problem: Syncope Qualifiers: Syncope type: unspecified Qualified Code(s): R55 - Syncope and collapse
--- NOTE | 2025-01-19 16:00 | XRay Report ---
XR chest 1V portable HISTORY: 79 years-old Female Chest pain, nonspecific COMPARISON: 04/01/2023 TECHNIQUE: AP view of the chest FINDINGS: Cholecystectomy. Cardiomediastinal and hilar silhouettes are within normal limits. No pneumothorax, p leural effusion or airspace consolidation. Left breast biopsy clip. Bones appear grossly intact. IMPRESSION: No acute process. ACT 112: Negative or not required by law. The above report was generated using voice recognition software. It may contain grammatical, syntax o r spelling errors. Electronically signed by: Da Kearns M.D. 01/19/2025 3:59 PM
[2025-01-19 16:01] LABS: Hematocrit (blood only) 38.3 % (37.0-47.0); Hemoglobin 13.6 g/dl (12.0-16.0); Immature Granulocytes # (auto) 0.04 K/uL (0.01-0.20); Immature Granulocytes % (auto) 0.4 %; Mean Corpuscular Hemoglobin 28.3 pg (25.0-34.0); Mean Corpuscular Volume 79.6 fL (80.0-100.0); Platelet Count 293 K/uL (130-400); RDW Standard Deviation 35.7 fL (36.4-46.3); Red Blood Count 4.81 M/uL (4.20-5.40); White Blood Count 10.90 K/ul (4.8-10.8)
[2025-01-19 16:22] LABS: Alanine Aminotransferase 14.0 U/L (7-52); Albumin Globulin Ratio 2.0 (0.9-2); Alkaline Phosphatase 66.0 U/L (34-104); Anion Gap 11.0 (3-11); Bilirubin,Total 0.5 mg/dl (0.2-1.0); Blood Urea Nitrogen 17.0 mg/dl (6-23); Calcium 9.9 mg/dl (8.6-10.3); Carbon Dioxide 30.0 mmol/L (21-32); Chloride 94.0 mmol/L (98-107); Creatinine Clr Calc Pharmacy 30.8 ml/min; Globulin 2.4 gm/dl (2.5-4.0); Glucose 170.0 mg/dl (70-99(Fasting)); Potassium 2.5 mmol/L (3.5-5.1); Sodium 135.0 mmol/L (136-145); Total Protein 7.1 gm/dl (6.0-8.3)
[2025-01-19] MEDS: SODIUM CHLORIDE 0.9% 500 ML IV ONE (16:29)
[2025-01-19 16:34] LABS: INR 1.0 (0.9-1.1); Partial Thromboplastin Time 26 Seconds (21-31); Prothrombin Time 10.8 Seconds (9.0-12.0)
--- NOTE | 2025-01-19 16:49 | CT Scan Report ---
CT head without contrast History: Trauma Comparison: 04/01/2023 Technique: Using multidetector thin collimation helical acquisition technique, axial, coronal and sagittal CT images from the skull base to the vertex were obtained without intravenous contrast. Dose reduction techniques were achieved by using automatic exposure control and/or adjustment of mA and/or kV according to patient size and/or use of iterative reconstruction technique. Findings: No intracranial hemorrhage, mass-effect, or midline shift. The ventricles are proportionate to the cerebral sulci. The mead to white matter differentiation of the cerebral hemispheres is preserved. The basal cisterns are patent. The visualized paranasal sinuses are clear. Mastoid air cells are clear. Impression: No acute intracranial pathology. Electronically signed by Jason Walker 01-19-2025 4:48 PM
[2025-01-19] MEDS: POTASSIUM CHLORIDE CRTAB 20 MEQ TABCR PO STA ×2 (17:07→17:47)
[2025-01-19] MEDS: MAGNESIUM OXIDE 400 MG TAB PO STA (17:07)
[2025-01-19 17:13] LABS: Magnesium 2.3 mg/dl (1.7-2.4)
--- NOTE | 2025-01-19 17:22 | History & Physical Report ---
Date of Service January 19, 2025 Assessment & Plan (1) Chronic kidney disease, stage 3 (moderate): (2) Dementia: (3) Degenerative spondylolisthesis: (4) Anxiety and depression: (5) Dyspepsia: (6) Diabetes mellitus, type 2: (7) Hypertension: (8) Hyperlipidemia: (9) Syncope and collapse: (10) Murmur: Plan #Syncope and collapse, dehydration, hypokalemia -- suspect syncope/collapse related to dehydration with ongoing poor PO intake over past month with recent start Jardiance for DM (prior on metformin) with suspected underlying mild- moderate aortic stenosis given + murmur on exam, worsened weakness with K 2.5, slight bump in Cr 1.23. CT head negative for acute process. s/p 1L NSS in ER Admit to medical w/ developmental writing instructor for arrhythmia. EKG NSR 68bpm. Trop 6.4, no CP/SOB reported Additional 1L LR ordered for hydration (will provide additional K) Electrolyte replacement for hypokalemia w/ K 2.5 - s/p40meq PO in ER, additional 20meq ordered. Mag wnl Orthostatic VS ordered Hold Jardiance given suspicion for contribution to above, ania new med/timing and patient age/PO intake and hydration status at baseline. Prior was on HCTZ but discontinued for low K/dehydration as well -Check UA to ensure no UTI w/ recent Jardiance start. WBC 10.9k w/ L shift but ?2nd to fall/injury/dehydration status Check ECHO given murmur, ?underlying No bruit on exam PT/OT consults placed Fall precautions Monitor response to above, could consider MRI if ongoing issues but again suspect dehydrated w/ recent Jardiance and underlying w/ baseline lumbar stenosis and could also consider lumbar imaging if not improving with above #Murmur- on exam, checking echo as outlined above for suspected #CKD III - slight bump in Cr above baseline, suspected 2nd to above dehydration with Jardiance Jardiance has been held. IVF hydration has been ordered Remains on losartan 100mg for BP control Renal dose meds/avoid nephrotoxins- suspect patient should have Jardiance DISCONTINUED as discussed BMP in AM #DM II - on Jardiance as above, will check A1c w/ AM labs. SSI while inpatient. If A1c well controlled, monitor insulin needs/consider having off therapy at md vs alternative PO. Prior reports metformin w/ mentation issues #HTN- losartan continued, IVF hydration. Can add hydralazine if remains elevated but will monitor w/ hydration #HLD - crestor 10mg daily continued, is recent med in past month as well and may need to consider holding if ongoing issues. #Mood- continue effexor 225mg daily #Microcytosis - TSH checked earlier this year and wnl 1.5. MCV low normal 79 and added iron studies to AM labs. No bleeding reported. ?if not had c-scope should for screening however Full code DVT Proph: SCDs for now, avoiding Lovenox w/ JANET. Can consider adding Heparin SQ in AM if remaining inpatient Dispo: admit to medical w/ telemetry given hypokalemia, monitor for arrythmia and check echo to assess for valvular disease. PT/OT consulted. Updated son and daughters x 2 in ER on admission. History of Present Illness Chief Complaint: syncope x 2, weakness, hypokalemia Primary Care Provider: Liss Garrison, 79yo female with PMHx significant for DM II, HTN, HLD, depression, dementia, lumbar stenosis presented for syncope x 2 today. Evaluated in room C2B, reports was going to get something and bent over and felt like her legs went out and she passed out/struck her head. Currently alert/oriented Per daughter in room, patient was out for a few seconds and was easily awoken when laying flat. No tonic/clonic jerking or urinary incontinence at that time. Does endorse poor PO intake recently, appears dehydrated on exam despite IV bolus in ER. Reports prior issues with low potassium and was 2.5 on admission. Daughters in room report having had taken her OFF of her HCTZ in the past and is just on losartan 100mg daily at this time. Notes she was previously on metformin but that she has new prescriptions for jardiance 10mg and crestor. Denies urinary symptoms however could be related to dehydration/volume contraction as family and patient report she has had several episodes of dizziness/feeling like going to pass out but not until today did she have syncopal episode. Nursing alerted to obtain UA for evaluation, discussed repletion of potassium and monitoring on telemetry. No prior hx afib, denied palpitations. Denied hx murmur but does have +systolic murmur on exam and discussed suspect combination of jardiance and dehydration with suspected underlying aortic stenosis contributed to fall. Plan to admit for hydration, telemetry monitoring, electrolyte replacement and checking ECHO to assess for valvular heart disease. Full code. Questions/concerns addressed at this time. Allergies Allergy/AdvReac Type Severity Reaction Status Date / Time clonazepam AdvReac Unknown severe Verified 01/19/25 17:14 dizziness;severe ringing in ears donepezil AdvReac Dizziness Verified 01/19/25 17:14 Home Medications Medication Instructions Recorded Confirmed Type cholecalciferol (vitamin D3) 25 25 mcg PO QAM 07/01/22 01/19/25 History mcg (1,000 unit) capsule cyanocobalamin (vitamin B-12) 1,000 mcg PO QAM 07/01/22 01/19/25 History 1,000 mcg tablet (Vitamin B-12) blood sugar diagnostic #100 ea 05/04/23 01/19/25 Rx buspirone 15 mg tablet 15 mg PO BID #180 tabs 01/11/24 01/19/25 Rx losartan 100 1 tab PO QAM #90 tabs 03/24/24 01/19/25 Rx mg-hydrochlorothiazide 25 mg tablet venlafaxine 150 mg 150 mg PO QAM #90 caps 05/17/24 01/19/25 Rx capsule,extended release 24 hr memantine 10 mg tablet 10 mg PO BID 07/04/24 01/19/25 History empagliflozin 10 mg tablet 10 mg PO QAM 01/19/25 01/19/25 History (Jardiance) rosuvastatin 10 mg tablet 10 mg PO QAM 01/19/25 01/19/25 History venlafaxine 37.5 mg 37.5 mg PO QAM 01/19/25 01/19/25 History capsule,extended release 24 hr Past Med/Surg History Problem List (Updated 01/19/25 @ 20:19 by Gautam Zaarte MD) Acute dehydration (Acute) Acute hypokalemia (Acute) Syncope (Acute) Murmur Syncope and collapse Chronic kidney disease, stage 3 (moderate) Dementia Degenerative spondylolisthesis L4-5 Low serum parathyroid hormone (PTH) Lumbosacral radiculopathy Lumbar spondylosis Lumbar spinal stenosis Arthritis of carpometacarpal (CMC) joint of left thumb Anxiety and depression Dyspepsia Diabetes mellitus, type 2 NIDDM Hypertension Hyperlipidemia Anxiety related tremor Medical History Bilateral thumb pain Trigger finger, left index finger Trigger finger, right index finger Trigger finger, right middle finger Mild cognitive impairment Hypercalcemia Surgical History S/P hardware removal (05/2011) L knee w/ debridement S/P dilatation and curettage (2008) Status post hysteroscopic polypectomy (2008) Status post right knee replacement (2012) Status post left partial knee replacement (08/23/10) History of total left knee replacement (12/23/18) Status post trigger finger release B/L History of cholecystectomy History of bilateral tubal ligation History of appendectomy Family History Mother Family history of diabetes mellitus Brother Cardiac disorder Myocardial infarction Grandfather (Paternal) Breast cancer Father Myocardial infarction Seizures Uncle Myocardial infarction Sister Type 2 diabetes mellitus Denies family history of Ovarian cancer Prostate cancer Colorectal cancer Social History Smoking Status: Never smoker Second Hand Exposure: Yes (SPOUSE SMOKES); Do You Dip or Chew Tobacco: No; Hx Alcohol Use: No Hx Substance Use: No Preferred Language: Ukrainian Communication Ability: Effective Visual Impairment: No Limitations Hearing Ability: Normal 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: No Beliefs That Will Affect Care: None marital status: Current Living Situation: Spouse and Family Current Living Situation Comment: and daughter current occupational status: retired Other Information That Helps Us Care for You: No Feels Safe at Home: Yes Safety Concerns: Feels Safe At This Time Diet: regular Diet Comment: regular caffeine: Yes during the past year weight has: decreased > 10 lbs Physical Activity Frequency: Daily Physical Activity Frequency Comment: housework Seatbelt Use: always Sunscreen Use: No Assistive Devices: Cane and Glasses Review of Systems 2 Review of Systems: All systems reviewed & are unremarkable except as noted in HPI & below Physical Exam 2 Physical Exam: General: 79yo female, thin/frail appearing, sitting up in bed in ER, and daughters x 2 in room, NAD, drinking water, alert/oriented to person/place/events HEENT; no significant trauma, head atraumatic, normocephalic, no bruit, mm DRY, trachea midline Resp: even/unlabored, no significant w/r/c, on room air 99% CV: regular, +2-3/6 systolic murmur best appreciated at RUSB, no pitting edema, no calf tenderness, pulses present GI: +BS, soft/NT : no tapia, needing to void MSK/Neuro: nonfocal, not confused, answering questions appropriately, no slurred speech/facial droop, able to follow commands as asked Psych: AOx3, cooperative with exam Results & Data Results & Data Vital Signs (Past 12 Hours) Vital Signs Temp Pulse Pulse Resp BP BP Pulse Ox 01/19/25 17:11 85 20 134/100 99 01/19/25 15:53 82 01/19/25 15:42 96 01/19/25 15:32 96 01/19/25 15:32 89 19 124/79 96 01/19/25 15:32 37.1 C 89 19 124/79 96 O2 Del Method 01/19/25 17:11 Room Air 01/19/25 15:53 01/19/25 15:42 Room Air 01/19/25 15:32 Room Air 01/19/25 15:32 Room Air 01/19/25 15:32 Room Air Laboratory Results 01/19/25 15:40 01/19/25 15:40 Diagnostic Findings Chest X-Ray 01/19/25 15:42 XR chest 1V portable HISTORY: 79 years-old Female Chest pain, nonspecific COMPARISON: 04/01/2023 TECHNIQUE: AP view of the chest FINDINGS: Cholecystectomy. Cardiomediastinal and hilar silhouettes are within normal limits. No pneumothorax, pleural effusion or airspace consolidation. Left breast biopsy clip. Bones appear grossly intact. IMPRESSION: No acute process. ACT 112: Negative or not required by law. The above report was generated using voice recognition software. It may contain grammatical, syntax or spelling errors. Electronically signed by: Da Kearns M.D. 01/19/2025 3:[address] 01/19/25 15:59 CT head without contrast History: Trauma Comparison: 04/01/2023 Technique: Using multidetector thin collimation helical acquisition technique, axial, coronal and sagittal CT images from the skull base to the vertex were obtained without intravenous contrast. Dose reduction techniques were achieved by using automatic exposure control and/or adjustment of mA and/or kV according to patient size and/or use of iterative reconstruction technique. Findings: No intracranial hemorrhage, mass-effect, or midline shift. The ventricles are proportionate to the cerebral sulci. The mead to white matter differentiation of the cerebral hemispheres is preserved. The basal cisterns are patent. The visualized paranasal sinuses are clear. Mastoid air cells are clear. Impression: No acute intracranial pathology. Electronically signed by Jason Walker 01-19-2025 4:48 PM ECG Additional Comments: EKG NSR 89bpm Supervising Physician Co-Signing Physician Notes I personally saw and examined the patient. I independently reviewed the labs, EKG, imaging, problem list, medication list, past medical history and family history. I verified all pacheco points and agree with Erendira Perez PA-C with the following exceptions and/or additions: 79 year old female presents to the ER with dizzy episodes with appearing to correlate with starting SGLT-2 inhibitor O/E HS RRR, no murmurs, Chest CTAB, Abdo SNT A/P Presyncope - correlation fits with SGLT-2 use. Suspect mild dehydration related to this. IV fluids overnight. Stop SGLT-2 inhibitor PG Care Time/CCT Total # of Minutes Spent Total Time Spent with Patient: Total time spent is greater than 50% in coordination of care (as documented) at patient's floor/unit and/or counseling patient: Coding Level of Care Code 46412 INT INP/OBS CARE 3/75MIN Diagnoses Chronic kidney disease, stage 3 (moderate) N18.30 Dementia F03.90 Degenerative spondylolisthesis M43.10 Anxiety and depression F41.9; F32.9 Dyspepsia R10.13 Diabetes mellitus, type 2 E11.9 Hypertension I10 Hyperlipidemia E78.5 Syncope and collapse R55 Murmur R01.1
[2025-01-19 18:07] LABS: Appearance Urine Clear (Clear); Bacteria Urine Automated None Seen (None Seen); Cast Urine Automated 0-2 /lpf (0-2); Epithelial Cell Urine Auto 0-2 /hpf (0-2); Glucose Urine UA 3+ (Negative); RBC Urine Automated 0-2 /hpf (0-2); WBC Urine Automated 0-5 /hpf (0-5)
--- NOTE | 2025-01-19 18:45 | Electrocardiogram Report ---
Test Reason : Blood Pressure : */* mmHG Vent. Rate : 89 BPM Atrial Rate : 89 BPM P-R Int : 142 ms QRS Dur : 78 ms QT Int : 354 ms P-R-T Axes : 37 10 50 degrees QTcB Int : 430 ms Normal sinus rhythm Normal ECG When compared with ECG of 01-Apr-2023 14:57, No significant change was found Confirmed by Jason Tee ([id number]) on 01/19/2025 6:45:48 PM Referred By: Confirmed By: Jason Tee
[2025-01-19 19:07] VITALS: RESP 18
[2025-01-19] MEDS ORDERED: CARBOHYDRATES FOR HYPOGLYCEMIA PO PRN (20:42)
[2025-01-19] MEDS ORDERED: ACETAMINOPHEN 325 MG TAB PO PRN (20:42)
[2025-01-19] MEDS ORDERED: GLUCAGON FOR INJ 1 MG VIAL SQ PRN (20:42)
[2025-01-19] MEDS ORDERED: GLUCOSE 40% GEL 15 GM TUBE PO PRN (20:42)
[2025-01-19] MEDS ORDERED: ONDANSETRON INJ 2 MG/ML 2 ML VIAL IV PRN (20:42)
[2025-01-19] MEDS ORDERED: DEXTROSE 50% 50 ML SYRINGE IV PRN (20:42)
[2025-01-19] MEDS ORDERED: GLUCOSE 10 TAB/TUBE PO PRN (20:42)
[2025-01-19] MEDS: INSULIN ASPART PER UNIT CHARGE SC SCH (20:59)
[2025-01-19 21:04] LABS: Creatine Kinase 125.0 U/L (26-192)
[2025-01-19] MEDS: busPIRone 15 MG TAB PO SCH (21:45)
[2025-01-19] MEDS: MEMANTINE HCL 10 MG TAB PO SCH (21:45)
[2025-01-19] MEDS: LACTATED RINGER'S 1,000 ML IV SCH (21:45)
[2025-01-20 06:43] LABS: Hematocrit (blood only) 33.9 % (37.0-47.0); Hemoglobin 11.8 g/dl (12.0-16.0); Immature Granulocytes # (auto) 0.03 K/uL (0.01-0.20); Immature Granulocytes % (auto) 0.4 %; Mean Corpuscular Hemoglobin 28.4 pg (25.0-34.0); Mean Corpuscular Volume 81.5 fL (80.0-100.0); Platelet Count 221 K/uL (130-400); RDW Standard Deviation 37.3 fL (36.4-46.3); Red Blood Count 4.16 M/uL (4.20-5.40); White Blood Count 7.50 K/ul (4.8-10.8)
[2025-01-20 07:01] LABS: Anion Gap 6.0 (3-11); Blood Urea Nitrogen 12.0 mg/dl (6-23); Calcium 9.1 mg/dl (8.6-10.3); Carbon Dioxide 31.0 mmol/L (21-32); Chloride 103.0 mmol/L (98-107); Creatinine Clr Calc Pharmacy 39.1 ml/min; Glucose 131.0 mg/dl (70-99(Fasting)); Iron 41.0 mcg/dl (35-150); Magnesium 2.3 mg/dl (1.7-2.4); Potassium 3.4 mmol/L (3.5-5.1); Sodium 140.0 mmol/L (136-145); Total Iron Binding Cap Calc 351.0 mcg/dl (250-450); Transferrin 251.0 mg/dl (200-360); Transferrin (FE) Percent Satur 12.0 % (15-50)
[2025-01-20 07:22] LABS: Hemoglobin A1C 6.6 % (4.5-5.6)
[2025-01-20 07:25] LABS: Ferritin 52.3 ng/ml (8-388); Thyroid Stimulating Hormone 1.325 uIu/ml (0.300-4.500)
[2025-01-20] MEDS: POTASSIUM CHLORIDE CRTAB 20 MEQ TABCR PO STA (09:11)
[2025-01-20] MEDS: CHOLECALCIFEROL 25 MCG (1000 UNITS) TAB PO SCH (09:11)
[2025-01-20] MEDS: CYANOCOBALAMIN (B-12) 500 MCG TABLET PO SCH (09:12)
[2025-01-20] MEDS: VENLAFAXINE HCL XR 150 MG CAPXR PO SCH (09:12)
[2025-01-20] MEDS: ROSUVASTATIN CALCIUM 10 MG TAB PO SCH (09:12)
[2025-01-20] MEDS: VENLAFAXINE HCL XR 37.5 MG CAPXR PO SCH (09:12)
--- NOTE | 2025-01-20 09:31 | XCELERA ---
[id number]
--- NOTE | 2025-01-20 11:17 | Discharge Summary ---
Date of Service January 20, 2025 Admission HPI Per Admitting Provider 79yo female with PMHx significant for DM II, HTN, HLD, depression, dementia, lumbar stenosis presented for syncope x 2 today. Evaluated in room C2B, reports was going to get something and bent over and felt like her legs went out and she passed out/struck her head. Currently alert/oriented Per daughter in room, patient was out for a few seconds and was easily awoken when laying flat. No tonic/clonic jerking or urinary incontinence at that time. Does endorse poor PO intake recently, appears dehydrated on exam despite IV bolus in ER. Reports prior issues with low potassium and was 2.5 on admission. Daughters in r oom report having had taken her OFF of her HCTZ in the past and is just on losartan 100mg daily at this time. Notes she was previously on metformin but that she has new prescriptions for jardiance 10mg and crestor. Denies urinary symptoms however could be related to dehydration/volume contraction as family and patient report she has had several episodes of dizziness/feeling like going to pass out but not until today did she have syncopal episode. Nursing alerted to obtain UA for evaluation, discussed repletion of potassium and monitoring on telemetry. No prior hx afib, denied palpitations. Denied hx murmur but does have +systolic murmur on exam and discussed suspect combination of jardiance and dehydration with suspected underlying aortic stenosis contributed to fall. Plan to admit for hydration, telemetry monitoring, electrolyte replacement and checking ECHO to assess for valvular heart disease. Full code. Questions/concerns addressed at this time. Specialty Data Hospitalist Discharge diagnosis: Syncope Hypokalemia Discharge assessment: Vital Signs Temp Pulse Pulse Pulse Resp BP BP 01/20/25 07:30 69 01/20/25 07:30 36.6 C 60 18 101/66 01/20/25 03:41 37.0 C 68 18 116/77 01/20/25 00:10 67 01/19/25 22:40 36.9 C 65 18 01/19/25 20:52 74 01/19/25 20:30 36.7 C 90 16 01/19/25 19:43 77 18 132/69 01/19/25 19:00 80 18 01/19/25 17:11 85 20 01/19/25 15:53 82 01/19/25 15:42 01/19/25 15:32 01/19/25 15:32 89 19 01/19/25 15:32 37.1 C 89 19 124/79 GENERAL: 79 yo elderly well nourished WF. Awake, alert. No distress. LUNGS: Clear to auscultation bilaterally. No W/R/R. CARDIOVASCULAR: Regular rate and rhythm +murmur RSB ABDOMEN: Soft, non-tender and non-distended. BS normoactive x 4 quad. EXTREMITIES: No edema. Non-tender. Peripheral pulses +2/4. NEUROLOGIC: No focal neurological deficits. CN II-XII grossly intact. SKIN: Warm, dry, intact. No rashes or lesions. Discharge Data Consultations 01/19/25 16:54 ED Decision to Admit Stat Procedures Performed Chest X-Ray 01/19/25 15:42 XR chest 1V portable HISTORY: 79 years-old Female Chest pain, nonspecific COMPARISON: 04/01/2023 TECHNIQUE: AP view of the chest FINDINGS: Cholecystectomy. Cardiomediastinal and hilar silhouettes are within normal limits. No pneumothorax, pleural effusion or airspace consolidation. Left breast biopsy clip. Bones appear grossly intact. IMPRESSION: No acute process. ACT 112: Negative or not required by law. The above report was generated using voice recognition software. It may contain grammatical, syntax or spelling errors. Electronically signed by: Da Kearns M.D. 01/19/2025 3:[address] 01/19/25 15:59 CT head without contrast History: Trauma Comparison: 04/01/2023 Technique: Using multidetector thin collimation helical acquisition technique, axial, coronal and sagittal CT images from the skull base to the vertex were obtained without intravenous contrast. Dose reduction techniques were achieved by using automatic exposure control and/or adjustment of mA and/or kV according to patient size and/or use of iterative reconstruction technique. Findings: No intracranial hemorrhage, mass-effect, or midline shift. The ventricles are proportionate to the cerebral sulci. The mead to white matter differentiation of the cerebral hemispheres is preserved. The basal cisterns are patent. The visualized paranasal sinuses are clear. Mastoid air cells are clear. Impression: No acute intracranial pathology. Electronically signed by Jason Walker 01-19-2025 4:48 PM Hospital Course (1) Chronic kidney disease, stage 3 (moderate): (2) Dementia: (3) Degenerative spondylolisthesis: (4) Anxiety and depression: (5) Dyspepsia: (6) Diabetes mellitus, type 2: (7) Hypertension: (8) Hyperlipidemia: (9) Syncope and collapse: (10) Murmur: Plan #Syncope and collapse, dehydration, hypokalemia -- suspect syncope/collapse related to dehydration with ongoing poor PO intake over past month with recent start Jardiance for DM (prior on metformin) with suspected underlying mild- moderate aortic stenosis given + murmur on exam, worsened weakness with K 2.5, slight bump in Cr 1.23. CT head negative for acute process. s/p 1L NSS in ER Admitted to medical w/ marine engineering technicians for arrhythmia. EKG NSR 68bpm. Trop 6.4, no CP/SOB reported Additional 1L LR ordered for hydration (will provide additional K) Electrolyte replacement for hypokalemia w/ K 2.5 - s/p40meq PO in ER, additional 20meq ordered. Mag wnl Orthostatic VS ordered Hold Jardiance given suspicion for contribution to above, ania new med/timing and patient age/PO intake and hydration status at baseline. Prior was on HCTZ but discontinued for low K/dehydration as well Check ECHO given murmur, ?underlying --completed, essentially normal study No bruit on exam PT/OT consults placed but patient was ambulating independently in her room. Fall precautions UA obtained, no evidence of acute infection Potassium replaced, this AM 3.4, additional replacement ordered #Murmur- on exam, checking echo as outlined above for suspected #CKD III - slight bump in Cr above baseline, suspected 2nd to above dehydration with Jardiance Jardiance has been held. IVF hydration has been ordered Remains on losartan 100mg for BP control which was held in hospital Renal dose meds/avoid nephrotoxins- suspect patient should have Jardiance D ISCONTINUED as discussed #DM II - on Jardiance as above, will check A1c w/ AM labs. SSI while inpatient. If A1c well controlled, monitor insulin needs/consider having off therapy at dc vs alternative PO. Prior reports metformin w/ mentation issues #HTN- losartan held this AM due to marginal BP of 101/66. Received IVF hydration. #HLD - crestor 10mg daily continued, is recent med in past month as well and may need to consider holding if ongoing issues. #Mood- continue effexor 225mg daily #Microcytosis - TSH checked earlier this year and wnl 1.5. MCV low normal 79 and added iron studies to AM labs. No bleeding reported. ?if not had c-scope should for screening however Patient was up ambulating to and from the bathroom independently w/o symptoms of dizziness or lightheadedness. She is medically and hemodynamically stable for discharge. Discontinue losartan and jardiance. Needs PCP follow up to determine if needs restarted on low dose antihypertensives, but based on readings in the hospital, would not restart at this time. Push oral hydration. F/u with pcp within 1 week or sooner. Called and updated patient's daughter by phone. Plan d/w Dr. Escalante who is in agreement. Discharge time: 35 minutes Supervising Physician Co-Signing Physician Notes The patient was not seen by me. The chart was reviewed. Case discussed with YANET Rosales. Agree with assessment and plan Coding Level of Care Code 62444 INP/OBS DISCH >30 MIN Diagnoses Chronic kidney disease, stage 3 (moderate) N18.30 Dementia F03.90 Degenerative spondylolisthesis M43.10 Anxiety and depression F41.9; F32.9 Dyspepsia R10.13 Diabetes mellitus, type 2 E11.9 Hypertension I10 Hyperlipidemia E78.5 Syncope and collapse R55 Murmur R01.1
[2025-01-20 11:20] VITALS: BP 120/69; PULSE 80; TEMP 98.2; O2SAT 96
--- NOTE | 2025-01-20 12:14 | Communication Note ---
Date of Service: January 20, 2025 By CMS guidelines, a determination that the admission or continued stay is not medically necessary has been made by a member of the UR committee and a physi alice for this hospital stay, therefore a Code 44 will be completed and the Inpatient admission will be changed to outpatient.
--- NOTE | 2025-01-20 12:26 | Communication Note ---
Date of Service: January 20, 2025 By CMS guidelines, a determination that the admission or continued stay is not medically necessary has been made by a member of the UR committee and a physic miriam for this hospital stay, therefore a Code 44 will be completed and the Inpatient admission will be changed to outpatient.
== END 2025-01-20 12:49 | disposition home or self-care (01) | DRG 641 ==
LOC: ED 15:26 → SUATTDRO 17:16 → INTOOBSV 17:16 → 2N 17:16